=== PATIENT | female | born 1965 | race Caucasian/White ===

== ENCOUNTER 2017-06-04 22:15 | Emergency (ER) | payer OTHER ==
[~2017-06-04] VITALS: Ht 162.6 cm; Wt 52.0 kg
[~2017-06-04 22:15] MED LIST: ALPR0.5T99 PO; PRIL20TA2 PO; [UNRECOGNIZED DRUG - OTHER] EACH EYE
[2017-06-04 22:23] VITALS: BP 146/84; PULSE 89; RESP 18; TEMP 98.4; O2SAT 95
--- NOTE | 2017-06-04 22:26 | PD ---
HPI Chief Complaint: Alcohol/Drug Intoxication Time Seen by Provider: 22:26 Travel History International Travel<30 days: No Contact w/Intl Traveler<30days: No Traveled to known affect area: No History of Present Illness HPI Patient is a 51-year-old female presents emergency department for alcohol intoxication under Garcia act. According to Garcia act the patient was seen stumbling about could not find her car. She was confronted by law enforcement and the patient was unable to find a ride home. She is taken into protective custody and transported to [facility]. The patient on arrival clearly intoxicated but has no physical complaints. She denies any chest pain shortness of breath abdominal pain nausea vomiting. She is crying during exam but denies any suicidal homicidal ideation. States her mom is sick and she had 6 glasses of wine today. [facility] Past Medical History Anxiety: Yes GERD: Yes Immunizations Current: No Past Surgical History Tonsillectomy: Yes Other Surgery: Yes (BREAST IMPLANTS) Social History Alcohol Use: No Tobacco Use: No Substance Use: No Allergies-Medications (Allergen,Severity, Reaction): Coded Allergies: Keflex (Verified Allergy, Mild, 06/04/17) Penicillin (Verified Allergy, Mild, 06/04/17) Reported Meds & Prescriptions Reported Meds & Active Scripts Active No Active Prescriptions or Reported Medications Review of Systems Except as stated in HPI: all other systems reviewed are Neg Physical Exam Narrative GENERAL: Well-developed well-nourished, clearly intoxicated. Well-dressed. SKIN: Focused skin assessment warm/dry. HEAD: Atraumatic. Normocephalic. EYES: Pupils equal and round. No scleral icterus. No injection or drainage. ENT: No nasal bleeding or discharge. Mucous membranes pink and moist. NECK: Trachea midline. No JVD. CARDIOVASCULAR: Regular rate and rhythm. No murmur appreciated. RESPIRATORY: No accessory muscle use. Clear to auscultation. Breath sounds equal bilaterally. GASTROINTESTINAL: Abdomen soft, non-tender, nondistended. Hepatic and splenic margins not palpable. MUSCULOSKELETAL: No obvious deformities. No clubbing. No cyanosis. No edema. NEUROLOGICAL: Awake and alert. No obvious cranial nerve deficits. Motor grossly within normal limits. Normal speech. PSYCHIATRIC: Appropriate mood and affect; insight and judgment normal. Data Data Last Documented VS Vital Signs Date Time Temp Pulse Resp B/P Pulse Ox O2 Delivery O2 Flow Rate FiO2 7/25/17 22:23 98.4 89 18 146/84 95 MDM Medical Decision Making Medical Screen Exam Complete: Yes Emergency Medical Condition: Yes Differential Diagnosis Alcohol intoxication, acute traumatic injury to her person unlikely, suicidal attempt unlikely. Narrative Course Patient roomed in the emergency department, she was placed in a bed and I discussed with her that at this point she is heavily intoxicated and will be allowed to sleep it off in the emergency department until such time as she is deemed clinically sober to take a bus or a cab home or until a ride who is clinically sober can come to get her period she is medically cleared otherwise. Patient's ex-boyfriend has arrived to is clinically sober and wants to take her home. The patient is called him specifically and wants to go home. She has inability to the bathroom in high heels demonstrating a narrow gait. She is still intoxicated but there is no indication to keep urinary longer she has a safe discharge. Diagnosis Primary Impression: Alcohol intoxication Scripts No Active Prescriptions or Reported Meds Disposition: 01 DISCHARGE HOME Condition: Stable Anup Elizabeth MD Jun 04, 2017 22:26
== END 2017-06-04 23:56 | disposition home or self-care (01) ==
LOC: NEPD 22:15
DX: F10.129 Alcohol abuse with intoxication, unspecified (principal); F41.9 Anxiety disorder, unspecified; K21.9 Gastro-esophageal reflux disease without esophagitis; Z88.0 Allergy status to penicillin; Z88.1 Allergy status to other antibiotic agents
CPT/HCPCS: 99282